=== PATIENT | male | born 1970 | race Caucasian/White ===

== ENCOUNTER → 2017-03-30 | Outpatient (CLI) | payer BC, OTHER ==
[~2017-03-30] VITALS: Ht 188 cm; Wt 94.4 kg
[~2017-03-30] MED LIST: CRESTOR10 MG PO; IBUPROFEN 800800 M1 PO; ROBAXIN 750 MG750 M1 PO
--- NOTE | ~2017-03-30 | HPC ---
[facility] [address] [place] [address] PAIN MANAGEMENT CONSULTATION Name: STEVIEOTTO T Room #: REG JOHNNY Blanton#: [id number] Admission: 03/30/17 Attend Phys: Cameron Montgomery MD Discharge: Date of : 72 Report #: [id number] THIS REPORT FOR: //name// CC: Cameron Barnes DATE OF SERVICE: 03/30/2017 He was actually referred to me by physical therapist. CHIEF COMPLAINT: Low back pain with radiation into both legs with complex history of spinal surgery. The patient is here today for the first time at the request of his physical therapist, Pardeep Walls DPT. He has pain in both hips, left worse than right with radiation and tightness into the L5-L4 distribution. He has a longstanding history of back problems that date back over 20 years. He was diagnosed with scoliosis in his teenage years and in 1986, underwent an extensive T10 through L4 fusion. A few weeks following surgery, he fell necessitating return to operative room due to loosening of his pedicle screws and rods. There was an extension of his fusion at that time and 1 year later, he returned to the OR once again. At that time, he says all of the rods were removed and it was felt that he had fused mechanically following his last surgery. He has actually gotten along pretty well since that final surgery in 1987 and has remained active, living with chronic pain and managing it quite well. On an average day, he has pain in the back that is 5/10. He manage is with a daily stretching routine in the morning and afternoon and takes ibuprofen on a p.r.n. basis. 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 He goes to the gym on occasion, does some light weights and gardens. Typically, he has some increase in pain related to activity. Pain is usually in his hips and his legs. Over the last 6 months, he has noted worsening of this radiating radicular like pain. He has no x-rays. MEDICATIONS: Crestor, ibuprofen 800 mg q. 8 hours and methocarbamol 750 p.r.n. ALLERGIES: None. PAST MEDICAL HISTORY: Most significant medical history is related to his scoliosis surgeries in May and June 1987 followed by the pippa removal in June 1988. He had rotator cuff repair on the right in 2013 with good outcome. He now has some pain in his left shoulder. Treated for elevated cholesterol, but otherwise has been in good health. SOCIAL HISTORY: Denies use of tobacco, drinks alcohol socially, perhaps 1 beverage per night on average. 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 He has taken no time off because of his pain. His boys are teenage years. [address] [address] PAIN MANAGEMENT CONSULTATION Name: OTTO HUBBARD Room #: REG JOHNNY Blanton#: [id number] Admission: 03/30/17 Attend Phys: Cameron Montgomery MD Discharge: Date of : 72 Report #: [id number] REVIEW OF SYSTEMS: Positive for fatigue at end of the day. He has some recent burning on urination and frequency. PHYSICAL EXAMINATION: GENERAL: He is a very pleasant, outgoing 46-year-old. VITAL SIGNS: His blood pressure is 120/69, heart rate is 65. NEUROLOGIC: Moves easily from sitting to standing position, ambulates with a slight antalgic gait. There is no focal weakness noted or marked abnormality obvious to inspection. CHEST: Clear. CARDIAC: Rhythm is regular. MUSCULOSKELETAL: He has tenderness across his low back. Extensive scar that extends from roughly T4-T5 region all the way down into the sacrum. Spine appears fairly straight. In the lumbosacral region, there is a second scar which is apparently from a lipoma resection in the distant past. In the seated position and in the supine position, he does have tightness in the hamstring as well as radicular reproduction of pain into the hips and lateral thighs following an L4-L5 distribution. EXTREMITIES: Deep tendon reflexes are absent biceps, triceps, brachioradialis, also at knees and ankles. Sensation is intact. There is no focal weakness. No x-rays are available. IMPRESSION: 1. Low back pain with radiculopathy. 2. Extensive scoliosis surgery followed by complication and removal of fusion rods. RECOMMENDATIONS: Epidural steroid injection may provide some symptomatic relief for his radicular pain and I have recommended a transforaminal approach, particularly after viewing his spot films, which show that he has a dextrorotational curve. There is a large osteophytic disk at L3-L4. roller leveler at L4-L5 on the left would cover the majority of his dermatomal distribution pain on the left and I believe with a good epidural injection through the transforaminal approach, we would also get some right-sided coverage as well. I recommended an MRI at this time and it has been ordered without contrast. PROCEDURE: Left L4-L5 transforaminal epidural injection under fluoroscopic guidance. PROCEDURE: He was taken to the fluoroscopic suite, placed prone, skin prepped with ChloraPrep, skin anesthetized over the L4-L5 neural foramen. Using triplanar fluoroscopic views, I advanced the needle nicely into the epidural [facility] [address] [place] [address] PAIN MANAGEMENT CONSULTATION Name: OTTO HUBBARD Room #: REG [facility].#: [id number] Admission: 03/30/17 Attend Phys: Cameron Montgomery MD Discharge: Date of : 72 Report #: [id number] space, 1 mL of Omnipaque demonstrated excellent spread into the epidural space and along the L4 nerve root. This was then followed by 3 mL of 0.5% lidocaine mixed with 80 mg of triamcinolone. Pain was 4 at discharge. We will follow up in a month. Also let him know once we have the results of the MRI, so that we can discuss those. By: [id number] Cameron Montgomery MD /nt
[2017-03-30 08:46] VITALS: BP 143/98
== END | disposition home or self-care (01) ==
LOC: PAIN 08:16
DX: M54.16 Radiculopathy, lumbar region (principal)

== ENCOUNTER → 2018-05-23 | Outpatient (CLI) | payer BC, OTHER | LOC: HYPER 05-14 09:02 | DX: T81.41XA Infection following a procedure, superficial incisional surgical site, initial encounter (principal); M54.40 Lumbago with sciatica, unspecified side; Y83.8 Other surgical procedures as the cause of abnormal reaction of the patient, or of later complication, without mention of misadventure at the time of the procedure; Y92.89 Other specified places as the place of occurrence of the external cause ==

== ENCOUNTER → 2018-06-20 | Outpatient (CLI) | payer BC, OTHER | LOC: HYPER 07:07 | DX: T81.41XD Infection following a procedure, superficial incisional surgical site, subsequent encounter (principal); M54.40 Lumbago with sciatica, unspecified side; Y83.8 Other surgical procedures as the cause of abnormal reaction of the patient, or of later complication, without mention of misadventure at the time of the procedure ==

== ENCOUNTER → 2018-07-11 | Outpatient (CLI) | payer BC, OTHER | LOC: HYPER 07:30 | DX: T81.41XD Infection following a procedure, superficial incisional surgical site, subsequent encounter (principal); M54.40 Lumbago with sciatica, unspecified side; Y83.8 Other surgical procedures as the cause of abnormal reaction of the patient, or of later complication, without mention of misadventure at the time of the procedure ==

== ENCOUNTER → 2018-07-26 | Outpatient (CLI) | payer BC, OTHER | LOC: HYPER 07:10 | DX: T81.41XD Infection following a procedure, superficial incisional surgical site, subsequent encounter (principal); M54.40 Lumbago with sciatica, unspecified side; Y83.8 Other surgical procedures as the cause of abnormal reaction of the patient, or of later complication, without mention of misadventure at the time of the procedure ==

== ENCOUNTER → 2018-08-03 | Outpatient (CLI) | payer BC, OTHER | LOC: HYPER 07:41 | DX: T81.49XD Infection following a procedure, other surgical site, subsequent encounter (principal); M54.40 Lumbago with sciatica, unspecified side; Y83.8 Other surgical procedures as the cause of abnormal reaction of the patient, or of later complication, without mention of misadventure at the time of the procedure ==

== ENCOUNTER → 2018-08-20 | Outpatient (CLI) | payer BC, OTHER | LOC: HYPER 06:50 | DX: T81.41XD Infection following a procedure, superficial incisional surgical site, subsequent encounter (principal); M54.40 Lumbago with sciatica, unspecified side; Y83.8 Other surgical procedures as the cause of abnormal reaction of the patient, or of later complication, without mention of misadventure at the time of the procedure ==

== ENCOUNTER → 2018-09-03 | Outpatient (CLI) | payer BC, OTHER | LOC: HYPER 06:50 | DX: T81.41XD Infection following a procedure, superficial incisional surgical site, subsequent encounter (principal); M54.40 Lumbago with sciatica, unspecified side; Y83.8 Other surgical procedures as the cause of abnormal reaction of the patient, or of later complication, without mention of misadventure at the time of the procedure ==

== ENCOUNTER → 2018-09-14 | Outpatient (CLI) | payer BC, OTHER | LOC: HYPER 09-13 07:19 | DX: T81.41XD Infection following a procedure, superficial incisional surgical site, subsequent encounter (principal); M54.40 Lumbago with sciatica, unspecified side; Y83.8 Other surgical procedures as the cause of abnormal reaction of the patient, or of later complication, without mention of misadventure at the time of the procedure ==

== ENCOUNTER → 2018-09-27 | Outpatient (CLI) | payer BC, OTHER | LOC: HYPER 06:56 | DX: T81.49XD Infection following a procedure, other surgical site, subsequent encounter (principal); M54.40 Lumbago with sciatica, unspecified side; Y83.8 Other surgical procedures as the cause of abnormal reaction of the patient, or of later complication, without mention of misadventure at the time of the procedure ==

== ENCOUNTER → 2018-12-24 | Outpatient (CLI) | payer BC, OTHER | LOC: HYPER 07:05 | DX: T81.49XD Infection following a procedure, other surgical site, subsequent encounter (principal); M54.5 Low back pain; M54.40 Lumbago with sciatica, unspecified side; Y83.8 Other surgical procedures as the cause of abnormal reaction of the patient, or of later complication, without mention of misadventure at the time of the procedure ==

== ENCOUNTER → 2019-07-01 | Outpatient (CLI) | payer BC, OTHER ==
[~2019-07-01] VITALS: Ht 188 cm; Wt 92.1 kg
[~2019-07-01] MED LIST changes: +IBUPROFEN 600600 M1 PO; -IBUPROFEN 800800 M1 PO; +ROBAXIN 750 MG750 MG PO; +ULTRAM 50MG TAB50 MG PO
[2019-07-01 13:30] VITALS: BP 126/78
--- NOTE | 2019-07-01 14:01 | NUR ---
Pain Clinic Assessment: 1. History of Osteoarthritis: Not Applicable History of Rheumatoid Arthritis: Not Applicable 2. Height: 6 ft. 2 in. 188.0 cm. Weight: 203.0 lb. oz. 92.080 kg. Patient's BMI: 26.1 3. Vital Signs: BP: 126/78 Pulse: 80 Resp: 16 Temp: 02 Sat: 98 ECG Mon: 4. Pain Intensity: 4 5. Fall Risk: Dizziness: N Needs help standing or walking: N Fallen in the last 3 months: N Fall risk comments: 6. Patient on Blood Thinner: None 7. History of Hypertension: N 8. Opioid Therapy greater than 6 weeks: N Opiate Contract Signed: 9. Risk Assessment Tool Provided: Opioid Risk Tool 10. Functional Assessment Tool: 11. Recreational Drug Use: Never Drug Type: Tobacco Use: Never Smoker Tobacco Type: Amount or Packs/day: How Many Years: Alcohol Use: Yes Frequency: Weekly Quant: 1-2
--- NOTE | 2019-07-08 12:21 | HPC ---
[facility] [place] [address] PAIN MANAGEMENT CONSULTATION Name: STEVIEOTTO VEGA Room #: REG JOHNNY Harvinder#: [id number] Admission: 07/01/19 Attend Phys: Anastasia Montgomery MD Discharge: Date of : 72 Report #: [id number] THIS REPORT FOR: //name// CC: ANASTASIA Barnes DATE OF SERVICE: 07/01/2019 CHIEF COMPLAINT: Mid back pain. HISTORY OF PRESENT ILLNESS: The patient is a pleasant 49-year-old who I have seen in the past for back pain. He has a longstanding history of back issues. He had congenital developmental scoliosis and had surgery with pippa placement in his teenage years. The original fusion was T10 through L4. He had returned to the operating room after falling during recovery and there was an extension of fusion. Rods were ultimately removed on the 3rd surgery because natural means have resulted in fusion along the lumbosacral segment. He was getting along well until the mid and then he began experiencing increasing pain in his back. He remained very active, understanding the importance for him to continue to remain fit and he swims and lifts weight at the gym. He is in good shape. I last saw him in September of 2017 for radiculopathy. He received a lumbar epidural steroid injection and saw some improvement. For the next several months, he was doing well, but when pain returned, he saw Dr. Ramo Bryan who decided to perform a lumbar laminectomy and fusion. Surgery was performed, but he has developed a postoperative wound infection and was treated aggressively with antibiotics. Eventually, his wound healed and he returned back to his rehabilitation activities. Over the course of the last several months, he has been seeing a physical therapist. His pain in the mid back above the level of his fusion has worsened. There are no radicular features. There is pain throughout the trapezius along the rhomboids bilaterally and also deep along the paravertebral muscles. Pain is worse with stretching, arm extension and lifting. It is severe enough when standing that it interferes with his activities. Physical therapist also felt that this is myofascial in nature. He is here today to consider trigger point injections. MEDICATIONS: Ibuprofen 600 mg, rosuvastatin, tramadol is listed, but he takes it rarely and Robaxin 750 as needed for muscle spasm. PHYSICAL EXAMINATION: GENERAL: He is a very friendly, outgoing gentleman. VITAL SIGNS: Blood pressure is 126/78, heart rate 80, respirations 16. He is 6 feet 2 inches, 203 pounds for a BMI of 26.1. CHEST: Examination of the chest reveals no difficulty with breathing. [address] [address] PAIN MANAGEMENT CONSULTATION Name: OTTO HUBBARD Room #: REG [facility] Iván.#: [id number] Admission: 07/01/19 Attend Phys: Anastasia Montgomery MD Discharge: Date of : 72 Report #: [id number] CARDIAC: Rhythm is regular. He has myofascial tender points between the scapulae involving the muscles described above. Several trigger points were identified there. He also has pain along the left lumbosacral region where he has a rotational scoliosis with local myofascial trigger points identified. IMPRESSION: 1. Myofascial pain syndrome involving the trapezius, rhomboids and longissimus thoracis bilateral. Also pain along the lumbar paravertebral muscles on the left. 2. History of extensive fusion with removal of hardware 1980s. 3. History of postoperative infection following a decompressive laminectomy with Dr. Bryan 2018. RECOMMENDATION: Trigger point injections. PROCEDURE: He was taken to the block area. He was placed in the sitting position for the injections. Skin was prepped widely with ChloraPrep twice. I used a 27-gauge 1-1/4 inch needle for the trigger point injections. Six separate triggers were identified on the right and I injected each with 1 mL of solution containing 0.25% bupivacaine and 1 mg of triamcinolone. I then moved to the left. Six separate trigger points were identified once again and each was injected with a separate 27-gauge 1-1/4 inch needle, 1 mL of solution at each location. We concluded with injections of 3 trigger points along the paravertebral lumbar spine on the left. Following injection, all trigger point areas were gently massaged to help with spread of the solution throughout the muscle fibers. He tolerated the procedure well with a slight vasovagal reaction at the end of the procedure. He had an unusual reaction in recovery room complaining of spasm in the area of the left trapezius and rhomboid injections. This was severe enough that he complained of difficulty taking a deep breath. We considered very unusual possible complications including pneumothorax or irritation of a thoracic nerve root, but the needle depth was insufficient to reach those structures in my opinion and there was no paresthesia or discomfort to suggest such during the performance of our injections. I did order 30 mg of intramuscular Toradol, which was given and reduced the discomfort considerably. He was observed for about an hour and 15 minutes before being discharged feeling comfortable enough to make a transition home. Followup visit planned by phone this evening. 07-05-19 Note: I did place a call to check on him around 5:30 pm. He was still having some pain and felt it was difficult to take a deep breath. I called [facility] ER near his home and explained to the doctor that I was concerned that perhaps he had developed a pneumothorax from the procedure. x-ray did show a [facility] [address] [place] [address] PAIN MANAGEMENT CONSULTATION Name: OTTO HUBBARD Room #: REG [facility].#: [id number] Admission: 07/01/19 Attend Phys: Anastasia Montgomery MD Discharge: Date of : 72 Report #: [id number] "small" pneumothorax on the left. A consult was placed to a fuel island attendant in the [facility] system who gave Danny the option of having a chest tube. He reckoned that the pneumo was small enough and vital signs were stable that it could likely be tolerated until absorbed. Danny also consulted with his brother, a physician. He decided to forgo chest tube. Over the he gradually improved and we followed with two chest x-rays on 07-02 and 07-04 showing slight decrease in the later. This pneumothorax should resolve spontaneously without sequelea but there was one additional problem. A vacation to [place] on commercial airline was planned for 07-06-2019. I spoke with two friend pulmonologists on several occasions about the risk of flying. There is a paucity of patient data but the conservative guideline recommends avoiding air travel with a pneumothorax due to a remote risk of a tension pneumothorax. Airliners are pressurized to altitude of 8000 feet. Patients have flown safely with small pneumothorax but there is a slight risk. Danny chose to forgo his vacation trip. An appointment was made by the ER to see Dr. Vazquez, fuel island attendant but not until July 17. Due to a business flight scheduled for July 20. Danny wished to see a fuel island attendant sooner and I spoke with Dr. Marivel López a friend at [facility] who agreed to see him sooner to assess futher risks. Appointment now is Jul.14 but he may see him sooner if there is an open appointmemt. Danny has my number and will continue to contact me if further problems develop. to be seen sooner <ELECTRONICALLY SIGNED> By: Anastasia Montgomery MD 07/08/19 1221 [id number] Anastasia Montgomery MD /nt
== END | disposition home or self-care (01) ==
LOC: PAIN 06-29 10:27
DX: M79.18 Myalgia, other site (principal); Z98.890 Other specified postprocedural states; Z79.899 Other long term (current) drug therapy

== ENCOUNTER → 2019-07-02 | Outpatient (CLI) | payer BC, OTHER | LOC: RAD 10:12 | DX: J98.11 Atelectasis (principal); M41.84 Other forms of scoliosis, thoracic region ==

== ENCOUNTER → 2019-07-04 | Outpatient (CLI) | payer BC, OTHER | LOC: RAD 09:32 | DX: J93.83 Other pneumothorax (principal) ==

== ENCOUNTER → 2020-01-24 | Outpatient (CLI) | payer OTHER | LOC: RAD 07:28 | DX: M43.17 Spondylolisthesis, lumbosacral region (principal); M41.84 Other forms of scoliosis, thoracic region; M41.86 Other forms of scoliosis, lumbar region; R29.890 Loss of height ==